=== PATIENT | female | born 1945 | race Caucasian/White ===

== ENCOUNTER → 2017-04-22 | Outpatient (CLI) | payer OTHER ==
[~2017-04-22] MED LIST: OPTIRAY 320 IV PRN
--- NOTE | 2017-04-22 11:29 | DIAGNOSTIC IMAGING REPORT ---
ABDOMEN AND PELVIS CT WITH AND WITHOUT IV CONTRAST, UROGRAM PROTOCOL CT DOSE: 822.80 mGycm HISTORY: R31.29 Microhematuria NPR per ELSA GURROLA (03/23/17 @ 10:35)[id number] TECHNIQUE: Multiaxial CT images of the abdomen and pelvis were performed both before and after the use of intravenous contrast to evaluate the urinary system. Maximal intensity projection images were performed at the workstation by the radiologist. A dose lowering technique was utilized adhering to the principles of ALARA. COMPARISON STUDY: None. FINDINGS: No renal or ureteral calculi. No hydronephrosis. No suspicious filling defects seen within the opacified bilateral renal collecting systems, ureters, or bladder. Of note, the mid to distal right ureter and mid left ureter are not opacified but normal in caliber. There are few subcentimeter hypodense lesions within the kidneys. These are too small to characterize but statistically represent cysts. Bilateral peripelvic renal cysts. Basilar linear densities consistent with subsegmental atelectasis. No suspicious lytic or blastic osseous lesions. Large hiatus hernia containing the majority of the stomach. The liver, gallbladder, pancreas, spleen, and adrenal glands are unremarkable. No retroperitoneal lymphadenopathy. Hysterectomy. Focal inflamed diverticulum at the proximal sigmoid colon with mild surrounding inflammatory change. This is consistent with acute diverticulitis. No perforation or abscess identified. No evidence for bowel obstruction. Normal appendix. IMPRESSION: 1. No renal or ureteral stones. No hydronephrosis. 2. No suspicious filling defects seen within the opacified bilateral renal collecting systems, ureters, or bladder. 3. Acute sigmoid diverticulitis. No perforation or abscess identified at this time. 4. Large hiatus hernia. 5. Additional findings as described above. 6. These findings were called/faxed to the referring physician's office following dictation. Electronically signed by: Jose Guardado M.D. 04/22/2017 11:28 AM Dictated Date/Time: 04/22/2017 11:18 AM
== END | disposition home or self-care (01) ==
LOC: C.CTS 10:35
PROVIDERS: ATTEND Urology
DX: R31.29 Other microscopic hematuria (principal)